=== PATIENT | male | born 1975 | race Two or more races ===

== ENCOUNTER 2024-01-13 18:00 | Emergency (ER) | payer SELFPAY ==
[~2024-01-13] VITALS: Ht 165.1 cm; Wt 79.5 kg
[2024-01-13 21:56] VITALS: BP 132/88; PULSE 58; RESP 16; TEMP 98.3
== END 2024-01-13 23:22 | disposition home or self-care (01) ==
LOC: EMS 18:00
DX: R07.89 Other chest pain (principal)
CPT/HCPCS: 71045; 99283